=== PATIENT | male | born 1940 | race Caucasian/White ===

== ENCOUNTER 2024-01-15 08:26 | Inpatient (IN) ==
[2024-01-15 09:10] LABS: Activated Partial Thrombo Time 25.6 seconds (26.0-38.0); INR 0.95 (0.83-1.13)
[2024-01-15 09:41] LABS: Albumin 3.9 g/dL (3.2-5.2); Albumin/Globulin Ratio 1.4 (1-3); Calcium 9.5 mg/dL (8.6-10.3); Creatinine, Serum 0.59 mg/dL (0.67-1.17); Globulin 2.8 g/dL (2-4); Potassium 3.8 mmol/L (3.5-5.0); Total Bilirubin 0.9 mg/dL (0.2-1.0); Total Protein 6.7 g/dL (6.4-8.9); eGFR CKD-EPI 95.1 (>60)
[2024-01-15 09:45] LABS: Platelet Count 4 10^3/uL (150-450)
[2024-01-15 09:46] LABS: Hematocrit 40.7 % (38-53); Hemoglobin 14.2 g/dL (13.2-16.3); Mean Corpuscular Volume 91.5 fL (80-97); Mean Platelet Volume 10.3 fL (7.5-11.2); Red Blood Count 4.45 10^6/uL (4.06-5.63); Red Cell Distribution Width 13.6 % (12-17); White Blood Count 5.7 10^3/uL (3.6-10.2)
[2024-01-15 10:14] LABS: ABS Eosinophils 0.2 10^3/uL (0.0-0.5); ABS Lymphocytes 2.3 10^3/uL (1.0-4.8); ABS Monocytes 0.6 10^3/uL (0.0-1.1); ABS Neutrophils 2.5 10^3/uL (1.5-7.6); ABS Nucleated RBC 0.01 10^3/ul; Eosinophil % 4.3 %; Lymphocyte % 39.9 %; Nucleated Red Blood Cells % 0.1 %/100WBC (0.0-0.8)
[2024-01-15 14:13] LABS: Influenza A Molecular Negative (Negative); Influenza B Molecular Negative (Negative)
[2024-01-15] MEDS: Dexamethasone IV 40 MG in NS 0.9% 50 ML 50 ML IVPB SCH (14:52)
[2024-01-15 16:44] LABS: Mean Platelet Volume 9.5 fL (7.5-11.2); Platelet Count 4 10^3/uL (150-450)
[2024-01-16 06:41] LABS: Calcium 9.9 mg/dL (8.6-10.3); Creatinine, Serum 0.63 mg/dL (0.67-1.17); Potassium 4.2 mmol/L (3.5-5.0); eGFR CKD-EPI 93.2 (>60)
[2024-01-16 06:48] LABS: Hematocrit 41.5 % (38-53); Hemoglobin 14.3 g/dL (13.2-16.3); Mean Corpuscular Hemoglobin 31.9 pg (27-33); Mean Corpuscular Hgb Conc 34.5 g/dL (31-36); Mean Corpuscular Volume 92.5 fL (80-97); Red Blood Count 4.49 10^6/uL (4.06-5.63); Red Cell Distribution Width 13.6 % (12-17)
[2024-01-16 07:22] LABS: ABS Lymphocytes 1.3 10^3/uL (1.0-4.8); ABS Monocytes 0.3 10^3/uL (0.0-1.1); ABS Neutrophils 5.4 10^3/uL (1.5-7.6); ABS Nucleated RBC 0.01 10^3/ul; Lymphocyte % 17.9 %; Mean Platelet Volume 10.6 fL (7.5-11.2); Nucleated Red Blood Cells % 0.1 %/100WBC (0.0-0.8); Platelet Count 4 10^3/uL (150-450)
[2024-01-16] MEDS: Iohexol 300 (CONTRAST) 10 ML SDV IV ONE (10:59)
[2024-01-16 15:19] LABS: Hepatitis B Surface Antigen Nonreactive (Nonreactive)
[2024-01-16 15:36] LABS: Hepatitis B Surface Ab Not Immune (Immune)
[2024-01-16 16:43] LABS: HIV 4th Generation Nonreactive (Nonreactive)
[2024-01-17 04:09] LABS: Hepatitis C Antibody Negative (Negative)
[2024-01-17 05:50] LABS: ABS Lymphocytes 2.7 10^3/uL (1.0-4.8); ABS Neutrophils 8.2 10^3/uL (1.5-7.6); ABS Nucleated RBC 0.03 10^3/ul; Eosinophil % 0.1 %; Hematocrit 38.9 % (38-53); Hemoglobin 13.5 g/dL (13.2-16.3); Lymphocyte % 22.6 %; Mean Corpuscular Hemoglobin 31.8 pg (27-33); Mean Corpuscular Hgb Conc 34.8 g/dL (31-36); Mean Corpuscular Volume 91.4 fL (80-97); Mean Platelet Volume 9.1 fL (7.5-11.2); Nucleated Red Blood Cells % 0.2 %/100WBC (0.0-0.8); Platelet Count 12 10^3/uL (150-450); Red Blood Count 4.25 10^6/uL (4.06-5.63); Red Cell Distribution Width 13.7 % (12-17)
[2024-01-17 06:48] LABS: Calcium 9.5 mg/dL (8.6-10.3); Creatinine, Serum 0.63 mg/dL (0.67-1.17); Potassium 4.3 mmol/L (3.5-5.0); eGFR CKD-EPI 93.2 (>60)
[2024-01-17] MEDS ORDERED: CMC:LINACLOTIDE 72 MCG CAP (NF) PO PRN (08:50)
[2024-01-17] MEDS ORDERED: Polyethylene Glycol 3350 17 GM PACKET PO PRN (08:50)
[2024-01-17] MEDS ORDERED: Immune Globulin IV Order (CPOE ENTRY PROTOCOL) IV SCH (12:00)
[2024-01-17] MEDS ORDERED: LINACLOTIDE 72 MCG PO PRN (14:01)
[2024-01-17] MEDS ORDERED: [UNRECOGNIZED DRUG - OTHER] PO PRN (14:02)
[2024-01-17] MEDS: [UNRECOGNIZED DRUG - MIXTURE] IV ONE (14:30)
[2024-01-18 07:36] LABS: ABS Lymphocytes 2.1 10^3/uL (1.0-4.8); ABS Monocytes 0.9 10^3/uL (0.0-1.1); ABS Neutrophils 7.1 10^3/uL (1.5-7.6); ABS Nucleated RBC 0.01 10^3/ul; Hemoglobin 12.7 g/dL (13.2-16.3); Lymphocyte % 20.7 %; Mean Corpuscular Hemoglobin 31.4 pg (27-33); Mean Corpuscular Hgb Conc 34.3 g/dL (31-36); Mean Corpuscular Volume 91.6 fL (80-97); Mean Platelet Volume 10.5 fL (7.5-11.2); Nucleated Red Blood Cells % 0.1 %/100WBC (0.0-0.8); Platelet Count 28 10^3/uL (150-450); Red Blood Count 4.04 10^6/uL (4.06-5.63); Red Cell Distribution Width 13.9 % (12-17); White Blood Count 10.1 10^3/uL (3.6-10.2)
[2024-01-18 08:28] LABS: Calcium 9.3 mg/dL (8.6-10.3); Creatinine, Serum 0.6 mg/dL (0.67-1.17); Potassium 4.1 mmol/L (3.5-5.0); eGFR CKD-EPI 94.6 (>60)
[2024-01-18 13:51] VITALS: BP 134/73
== END 2024-01-18 16:20 | disposition home or self-care (01) | DRG 813 ==
LOC: ED 08:26 → SUATTDRO 08:52 → EDHOLD 08:52 → MED 09:42
PROVIDERS: ADMIT Student in an Organized Health Care Education/Training Program; ATTEND Internal Medicine

== ENCOUNTER 2024-01-25 10:19 | Inpatient (IN) ==
[2024-01-25 13:07] LABS: Hematocrit 43.7 % (38-53); Hemoglobin 14.8 g/dL (13.2-16.3); Mean Corpuscular Hemoglobin 31.3 pg (27-33); Mean Corpuscular Hgb Conc 33.9 g/dL (31-36); Mean Corpuscular Volume 92.4 fL (80-97); Red Blood Count 4.73 10^6/uL (4.06-5.63); Red Cell Distribution Width 13.7 % (12-17); White Blood Count 16.1 10^3/uL (3.6-10.2)
[2024-01-25 13:29] LABS: Activated Partial Thrombo Time 26.2 seconds (26.0-38.0); INR 0.95 (0.83-1.13)
[2024-01-25 13:44] LABS: ABS Basophils 0.1 10^3/uL (0.0-0.1); ABS Lymphocytes 0.9 10^3/uL (1.0-4.8); ABS Monocytes 1.5 10^3/uL (0.0-1.1); ABS Neutrophils 13.5 10^3/uL (1.5-7.6); ABS Nucleated RBC 0.01 10^3/ul; Eosinophil % 0.1 %; Lymphocyte % 5.7 %; Mean Platelet Volume 11.3 fL (7.5-11.2); Nucleated Red Blood Cells % 0.1 %/100WBC (0.0-0.8); Platelet Count 6 10^3/uL (150-450)
[2024-01-25] MEDS ORDERED: Dexamethasone IV 4 MG/ML VIAL 1 ml VIAL IV SLOW PU ONE (13:50)
[2024-01-25 13:55] LABS: Albumin 3.9 g/dL (3.2-5.2); Albumin/Globulin Ratio 1.1 (1-3); Calcium 9.5 mg/dL (8.6-10.3); Creatinine, Serum 0.52 mg/dL (0.67-1.17); Globulin 3.4 g/dL (2-4); Potassium 3.8 mmol/L (3.5-5.0); Total Bilirubin 1.3 mg/dL (0.2-1.0); Total Protein 7.3 g/dL (6.4-8.9); eGFR CKD-EPI 98.8 (>60)
[2024-01-25] MEDS: Dexamethasone IV 40 MG in NS 0.9% 50 ML 50 ML IVPB ONE (14:57)
[2024-01-25] MEDS ORDERED: Immune Globulin IV Order (CPOE ENTRY PROTOCOL) IV SCH (19:00)
[2024-01-25 19:49] LABS: Mean Platelet Volume 8.4 fL (7.5-11.2); Platelet Count 12 10^3/uL (150-450)
[2024-01-25 20:03] LABS: Albumin 3.6 g/dL (3.2-5.2); Albumin/Globulin Ratio 1.1 (1-3); Calcium 9.3 mg/dL (8.6-10.3); Creatinine, Serum 0.63 mg/dL (0.67-1.17); Globulin 3.2 g/dL (2-4); Potassium 3.9 mmol/L (3.5-5.0); Total Bilirubin 1.2 mg/dL (0.2-1.0); Total Protein 6.8 g/dL (6.4-8.9); eGFR CKD-EPI 93.2 (>60)
[2024-01-25] MEDS: [UNRECOGNIZED DRUG - MIXTURE] IV ONE (22:56)
[2024-01-26 06:06] LABS: Hematocrit 34.5 % (38-53); Hemoglobin 12.2 g/dL (13.2-16.3); Mean Corpuscular Hemoglobin 32.5 pg (27-33); Mean Corpuscular Hgb Conc 35.4 g/dL (31-36); Mean Corpuscular Volume 91.9 fL (80-97); Red Blood Count 3.75 10^6/uL (4.06-5.63); Red Cell Distribution Width 13.9 % (12-17); White Blood Count 8.9 10^3/uL (3.6-10.2)
[2024-01-26 06:49] LABS: Mean Platelet Volume 9.2 fL (7.5-11.2); Platelet Count 10 10^3/uL (150-450)
[2024-01-26 06:50] LABS: ABS Lymphocytes 0.9 10^3/uL (1.0-4.8); ABS Monocytes 0.4 10^3/uL (0.0-1.1); ABS Neutrophils 7.7 10^3/uL (1.5-7.6); Lymphocyte % 9.7 %
[2024-01-26] MEDS ORDERED: Enoxaparin 40 MG/0.4 ML SYR SUBCUT SCH (09:00)
[2024-01-26] MEDS: Dexamethasone IV 40 MG in NS 0.9% 50 ML 50 ML IVPB SCH (12:57)
[2024-01-26] MEDS: romiPLOStim 250 MCG/0.5 ML VIAL SUBCUT ONE (12:57)
[2024-01-26] MEDS ORDERED: Dexamethasone IV 40 MG in NS 0.9% 50 ML 50 ML IVPB ONE (15:00)
[2024-01-26 17:42] LABS: Mean Platelet Volume 9.4 fL (7.5-11.2); Platelet Count 51 10^3/uL (150-450)
[2024-01-27 06:39] LABS: ABS Lymphocytes 1.1 10^3/uL (1.0-4.8); ABS Monocytes 0.7 10^3/uL (0.0-1.1); ABS Neutrophils 9.2 10^3/uL (1.5-7.6); Hematocrit 33.5 % (38-53); Hemoglobin 11.5 g/dL (13.2-16.3); Lymphocyte % 10.1 %; Mean Corpuscular Hemoglobin 31.9 pg (27-33); Mean Corpuscular Hgb Conc 34.4 g/dL (31-36); Mean Corpuscular Volume 92.6 fL (80-97); Platelet Count 57 10^3/uL (150-450); Red Blood Count 3.62 10^6/uL (4.06-5.63); Red Cell Distribution Width 13.7 % (12-17); White Blood Count 10.9 10^3/uL (3.6-10.2)
[2024-01-28 05:39] LABS: ABS Lymphocytes 1.4 10^3/uL (1.0-4.8); ABS Monocytes 0.7 10^3/uL (0.0-1.1); ABS Neutrophils 7.6 10^3/uL (1.5-7.6); Hematocrit 33.6 % (38-53); Hemoglobin 11.6 g/dL (13.2-16.3); Lymphocyte % 14.6 %; Mean Corpuscular Hgb Conc 34.7 g/dL (31-36); Mean Corpuscular Volume 92.5 fL (80-97); Mean Platelet Volume 8.8 fL (7.5-11.2); Platelet Count 85 10^3/uL (150-450); Red Blood Count 3.63 10^6/uL (4.06-5.63); Red Cell Distribution Width 14.1 % (12-17); White Blood Count 9.7 10^3/uL (3.6-10.2)
[2024-01-28 06:06] LABS: Calcium 8.9 mg/dL (8.6-10.3); Creatinine, Serum 0.44 mg/dL (0.67-1.17); Potassium 4.4 mmol/L (3.5-5.0); eGFR CKD-EPI 103.9 (>60)
[2024-01-28 09:34] VITALS: BP 115/63
== END 2024-01-28 12:30 | disposition home or self-care (01) | DRG 813 ==
LOC: ED 10:19 → EDHOLD 10:19 → SUATTDRO 15:19 → SSU 16:37
PROVIDERS: ADMIT Hospitalist; ATTEND Student in an Organized Health Care Education/Training Program